=== PATIENT | female | born 1990 | race African-American/Black ===

== ENCOUNTER 2021-12-25 12:28 | Inpatient (IN) ==
[2021-12-25] MEDS ORDERED: NIFEdipine 10 MG CAPSULE PO PRN ×2 (12:39→13:00)
[2021-12-25] MEDS: BETAMETH SODIUM PHOS/ACETATE 30 MG/5 ML VIAL IM SCH (12:53)
[2021-12-25] MEDS ORDERED: NIFEdipine 10 MG CAPSULE PO ONE (13:14)
[2021-12-25 13:15] LABS: Mucus,Urine Occasional /LPF (Occasional); Squamous Epithelial Cell,Urine Occasional /HPF (0-10); Urine Appearance Clear (Clear); Urine Color Yellow (Yellow)
[2021-12-25 13:16] LABS: Bilirubin,Urine Negative (Negative); Blood, Urine Negative (Negative); Glucose,Urine (UA) Negative (Negative); Ketones,Urine Negative (Negative); Nitrite,Urine Negative (Negative); Protein,Urine >=300 mg/dL (Negative); Urine Specific Gravity 1.025 (1.001-1.035); Urine Urobilinogen 0.2 eU/dL (<2.0)
[2021-12-25 13:17] LABS: Basophils % 0.3 % (0.0-0.8); Eosinophils # 0.2 10*3/uL (0.0-0.87); Eosinophils % 1.7 % (0.00-10.9); Hematocrit 34.5 VOL% (35.7-47.0); Hemoglobin 11.3 GM/DL (12.0-16.0); Immature Granulocytes % 1.2 %; Immature Granulocytes Absolute 0.11 #; Lymphocytes # 1.7 10*3/uL (1.4-4.0); Lymphocytes % 18.3 % (21.3-54.2); Mean Corpuscular HGB Conc 32.8 GM/DL (32-36); Mean Corpuscular Volume 95.3 FL (87-102); Mean Platelet Volume 11.5 FL (9.6-12.0); Monocytes # 0.6 10*3/uL (0.11-0.8); Neutrophils % 71.5 % (38.7-73.9); Platelet Count 212 T/CUMM (130-400); Red Blood Count 3.62 MC/CUMM (3.8-5.5); Red Cell Distribution Width 15.7 % (9.3-17.3)
[2021-12-25 13:24] LABS: Barbiturates Screen,Urine Negative (Negative); Benzodiazepines Screen,Urine Negative (Negative); Cannabinoid Screen,Urine Negative (Negative); Opiate Screen,Urine Positive (Negative); Phencyclidine Screen,Urine Negative (Negative)
[2021-12-25 13:26] LABS: Protein/Creatinine Ratio,Urine 0.8 RATIO
[2021-12-25 13:27] LABS: INR 0.9; Partial Thromboplastin Time 27.1 SECS (23.7-32.9)
[2021-12-25 13:36] LABS: Alanine Aminotransferase < 9 U/L (13-56); Albumin 2.8 G/DL (3.4-5.0); Alkaline Phosphatase 140 U/L (45-117); Aspartate Amino Transferase 7 U/L (0-37); Blood Urea Nitrogen 9 MG/DL (7-18); Calcium 9.3 MG/DL (8.5-10.1); Carbon Dioxide 24 MMOL/L (21-32); Chloride 106 MMOL/L (98-107); Glucose 77 MG/DL (74-106); Osmolality,Calculated 267.1 MOS/KG (273-304); Potassium 3.7 MMOL/L (3.5-5.1); Sodium 135 MMOL/L (136-145); Total Protein 6.5 G/DL (6.4-8.2); Uric Acid 5.2 MG/DL (2.6-6.0)
[2021-12-25] MEDS ORDERED: LABETALOL 100 MG TABLET PO ONE ×2 (13:38→15:27)
[2021-12-25 13:51] LABS: Platelet Estimate Normal
[2021-12-25] MEDS ORDERED: METHYLERGONOVINE 0.2 MG/1 ML AMP IM PRN (15:59)
[2021-12-25] MEDS ORDERED: OXYTOCIN/LR 20 UNIT/1,000 ML BAG IV ONE (15:59)
[2021-12-25] MEDS ORDERED: ONDANSETRON 4 MG/2 ML VIAL IV PRN (15:59)
[2021-12-25] MEDS ORDERED: CARBOPROST TROMETHAMINE 250 MCG/ML AMP IM PRN (15:59)
[2021-12-25] MEDS ORDERED: BUTORPHANOL 2 MG/ML VIAL IV PRN (15:59)
[2021-12-25] MEDS ORDERED: ACETAMINOPHEN 325 MG TABLET PO PRN (15:59)
[2021-12-25] MEDS ORDERED: MEPERIDINE 50 MG/1 ML VIAL IV PRN (15:59)
[2021-12-25] MEDS ORDERED: miSOPROStoL 200 MCG TABLET RECTAL PRN (15:59)
[2021-12-25] MEDS ORDERED: TRANEXAMIC ACID 1,000 MG in SODIUM CHLORIDE 0.9% 100 ML IV PRN (15:59)
[2021-12-25] MEDS ORDERED: PROMETHAZINE 25 MG/1 ML VIAL IM PRN (20:08)
[2021-12-25] MEDS: LABETALOL 200 MG TABLET PO SCH (20:52)
[2021-12-26] MEDS: BETAMETH SODIUM PHOS/ACETATE 30 MG/5 ML VIAL IM SCH (01:02)
[2021-12-26] MEDS ORDERED: LABETALOL 100 MG/20 ML VIAL IV ONE ×2 (02:32→11:03)
[2021-12-26] MEDS ORDERED: MAGNESIUM SULF RIDER 4 GM/100 ML PREMIX IV ONE (04:52)
[2021-12-26] MEDS ORDERED: hydrALAZINE 20 MG/1 ML VIAL IV ONE ×2 (04:52→14:05)
[2021-12-26] MEDS: LACTATED RINGERS 1,000 ML IV PRN ×2 (05:04→08:53)
[2021-12-26] MEDS: MAGNESIUM SULF DRIP 40 GM/1,000 ML ML IV SCH (05:31)
[2021-12-26] MEDS ORDERED: BUPIVACAINE SPINAL 0.75% 2 ML AMP SPINAL ONE (07:56)
[2021-12-26] MEDS ORDERED: PHENYLEPHRINE 1 MG/10 ML SYRINGE IV ONE (07:56)
[2021-12-26] MEDS ORDERED: ONDANSETRON 4 MG/2 ML VIAL ONE (07:56)
[2021-12-26] MEDS ORDERED: buprenorphine HCL 0.3 MG/ML VIAL ONE (07:56)
[2021-12-26] MEDS ORDERED: CITRIC ACID/SODIUM CITRATE 30 ML UDCUP PO ONE (08:00)
[2021-12-26] MEDS ORDERED: OXYTOCIN 10 UNIT/ML VIAL IM ONE (08:00)
[2021-12-26] MEDS ORDERED: CLINDAMYCIN INJ 900 MG/50 ML PREMIX IV ONE (08:00)
[2021-12-26] MEDS ORDERED: OXYTOCIN/LR 30 UNIT/1,000 ML BAG IV ONE (08:00)
[2021-12-26] MEDS ORDERED: FAMOTIDINE 20 MG/2 ML VIAL IV ONE (08:00)
[2021-12-26] MEDS ORDERED: TRANEXAMIC ACID 1,000 MG in SODIUM CHLORIDE 0.9% 100 ML IV PRN (08:30)
[2021-12-26] MEDS ORDERED: propofoL 200 MG/20 ML VIAL IV ONE (09:38)
[2021-12-26] MEDS ORDERED: LIDOCAINE 2% 5 ML VIAL ONE (09:38)
[2021-12-26] MEDS ORDERED: ACETAMINOPHEN INJ 1,000 MG/100 ML VIAL IV ONE (09:38)
[2021-12-26] MEDS ORDERED: MIDAZOLAM 2 MG/2 ML VIAL ONE (09:40)
[2021-12-26 09:52] LABS: Cord Venous Blood HCO3 21.2 MMOL/L; Cord Venous Blood PCO2 49.5 MMHG; Cord Venous Blood PO2 19.7
[2021-12-26] MEDS ORDERED: LABETALOL 20 MG/4 ML SYRINGE IV ONE ×2 (09:52→09:54)
[2021-12-26] MEDS ORDERED: HYDROmorphone 1 MG/1 ML SYRINGE IV PRN (10:00)
[2021-12-26] MEDS: LACTATED RINGERS 1,000 ML IV SCH (10:01)
[2021-12-26 10:11] LABS: Hyaline Casts,Urine 4 /LPF (0-3); Mucus,Urine Occasional /LPF (Occasional); RBC,Urine <1 /HPF (0-4); Squamous Epithelial Cell,Urine Occasional /HPF (0-10)
[2021-12-26 10:12] LABS: Bilirubin,Urine Negative (Negative); Blood, Urine Trace mg/dL (Negative); Glucose,Urine (UA) Negative (Negative); Ketones,Urine Negative (Negative); Nitrite,Urine Negative (Negative); Protein,Urine Negative (Negative); Urine Appearance Clear (Clear); Urine Color Yellow (Yellow); Urine Specific Gravity 1.025 (1.001-1.035); Urine Urobilinogen 0.2 eU/dL (<2.0); Urine pH 5.5 (4.5-8.0)
[2021-12-26] MEDS ORDERED: OXYTOCIN/LR 20 UNIT/1,000 ML BAG IV ONE (10:24)
[2021-12-26] MEDS ORDERED: ONDANSETRON 4 MG/2 ML VIAL IV PRN (10:24)
[2021-12-26] MEDS ORDERED: RHO(D) IMMUNE GLOBULIN 300 MCG SYRINGE IM ONE (10:24)
[2021-12-26] MEDS ORDERED: ACETAMINOPHEN 325 MG TABLET PO PRN (10:24)
[2021-12-26] MEDS: LABETALOL 200 MG TABLET PO SCH (10:55)
[2021-12-26] MEDS ORDERED: LORazepam 2 MG/1 ML VIAL IV PRN (11:00)
[2021-12-26] MEDS: HYDROmorphone 1 MG/1 ML SYRINGE IV PRN ×2 (13:47→21:23)
[2021-12-26] MEDS ORDERED: hydrALAZINE 20 MG/1 ML VIAL IV PRN (14:05)
[2021-12-26] MEDS: CLINDAMYCIN INJ 900 MG/50 ML PREMIX IV SCH (16:56)
[2021-12-26] MEDS: ACETAMINOPHEN 500 MG TABLET PO SCH ×2 (17:55→23:50)
[2021-12-27] MEDS: CLINDAMYCIN INJ 900 MG/50 ML PREMIX IV SCH (01:23)
[2021-12-27] MEDS: LACTATED RINGERS 1,000 ML IV SCH (03:42)
[2021-12-27] MEDS: MAGNESIUM SULF DRIP 40 GM/1,000 ML ML IV SCH (03:43)
[2021-12-27] MEDS: ACETAMINOPHEN 500 MG TABLET PO SCH (05:41)
[2021-12-27] MEDS: DOCUSATE SODIUM 100 MG CAPSULE PO SCH ×2 (09:05→20:21)
[2021-12-27] MEDS: MULTIVITAMIN (PRENATAL) TABLET PO SCH (09:05)
[2021-12-27 09:47] LABS: Hematocrit 31.6 VOL% (35.7-47.0); Hemoglobin 10.2 GM/DL (12.0-16.0); Immature Granulocytes % 1.9 %; Immature Granulocytes Absolute 0.38 #; Lymphocytes # 1.1 10*3/uL (1.4-4.0); Lymphocytes % 5.2 % (21.3-54.2); Mean Corpuscular HGB Conc 32.3 GM/DL (32-36); Mean Corpuscular Volume 97.5 FL (87-102); Mean Platelet Volume 11.9 FL (9.6-12.0); Monocytes # 1.2 10*3/uL (0.11-0.8); Monocytes % 5.8 % (1.7-12.7); Neutrophils % 87.1 % (38.7-73.9); Platelet Count 240 T/CUMM (130-400); Red Blood Count 3.24 MC/CUMM (3.8-5.5); Red Cell Distribution Width 16.6 % (9.3-17.3); White Blood Count 20.5 T/CUMM (4-12)
[2021-12-27 10:05] LABS: Lymphocytes 5 % (20-55); Platelet Estimate Adequate; Total Cells Counted 100
[2021-12-27] MEDS: SIMETHICONE CHEW 80 MG TABLET PO PRN ×2 (11:02→20:23)
[2021-12-27] MEDS: IBUPROFEN 800 MG TABLET PO PRN (11:03)
[2021-12-27] MEDS: MAGNESIUM HYDROXIDE SUSP 30 ML UDCUP PO PRN (20:22)
[2021-12-28] MEDS: IBUPROFEN 800 MG TABLET PO PRN (01:11)
[2021-12-28] MEDS: SIMETHICONE CHEW 80 MG TABLET PO PRN ×2 (03:29→08:29)
[2021-12-28] MEDS: DOCUSATE SODIUM 100 MG CAPSULE PO SCH ×2 (08:28→21:20)
[2021-12-28] MEDS: METOCLOPRAMIDE 10 MG TABLET PO PRN ×2 (08:28→16:15)
[2021-12-28] MEDS: MAGNESIUM HYDROXIDE SUSP 30 ML UDCUP PO PRN (08:28)
[2021-12-28] MEDS: MULTIVITAMIN (PRENATAL) TABLET PO SCH (08:29)
[2021-12-28] MEDS ORDERED: LORazepam 1 MG TABLET PO ONE (10:39)
[2021-12-29] MEDS ORDERED: HydrOXYzine PAMOATE 25 MG CAPSULE PO ONE (05:00)
[2021-12-29] MEDS: IBUPROFEN 800 MG TABLET PO PRN (07:57)
[2021-12-29] MEDS: MAGNESIUM HYDROXIDE SUSP 30 ML UDCUP PO PRN (09:08)
[2021-12-29] MEDS: SIMETHICONE CHEW 80 MG TABLET PO PRN ×2 (09:08→19:55)
[2021-12-29] MEDS: MULTIVITAMIN (PRENATAL) TABLET PO SCH (09:08)
[2021-12-29] MEDS: DOCUSATE SODIUM 100 MG CAPSULE PO SCH ×3 (09:09→21:45)
[2021-12-29] MEDS ORDERED: LORazepam 1 MG TABLET PO ONE (12:09)
[2021-12-29] MEDS ORDERED: LORazepam 1 MG TABLET PO PRN (13:09)
[2021-12-30] MEDS: IBUPROFEN 800 MG TABLET PO PRN (05:04)
[2021-12-30 08:48] VITALS: BP 147/89
[2021-12-30] MEDS: DOCUSATE SODIUM 100 MG CAPSULE PO SCH (08:55)
[2021-12-30] MEDS: MULTIVITAMIN (PRENATAL) TABLET PO SCH (08:55)
[2021-12-30] MEDS: SIMETHICONE CHEW 80 MG TABLET PO PRN (08:55)
== END 2021-12-30 12:30 | disposition home or self-care (01) | DRG 788 ==
LOC: N.LDOUT 12:28 → N.LD 12:30 → N.OB 12-27 09:24
PROVIDERS: ADMIT Obstetrics & Gynecology; ATTEND Obstetrics & Gynecology
PROC: LDCSECT (ICD-10-PCS; 2021-12-26 08:50)